=== PATIENT | male | born 1965 | race Caucasian/White ===

== ENCOUNTER 2022-08-16 12:14 | Emergency (ER) | payer OTHER, SELFPAY ==
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
[2022-08-16 14:01] VITALS: BP 119/80; PULSE 69; RESP 16; TEMP 36.2; O2SAT 97; BMI 30.1
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
== END 2022-08-16 17:09 | disposition home or self-care (01) ==
PROVIDERS: Emergency Provider Emergency Medicine; PCP Family Medicine
DX: S06.0X0A Concussion without loss of consciousness, initial encounter (principal); S02.2XXA Fracture of nasal bones, initial encounter for closed fracture; S16.1XXA Strain of muscle, fascia and tendon at neck level, initial encounter; S00.83XA Contusion of other part of head, initial encounter; Y04.2XXA Assault by strike against or bumped into by another person, initial encounter; Y93.89 Activity, other specified; Y92.039 Unspecified place in apartment as the place of occurrence of the external cause; Y99.9 Unspecified external cause status
CPT/HCPCS: 70450; 70486; 72125; 99283; 99284